=== PATIENT | female | born 1990 | race American Indian/Alaskan Native ===

== ENCOUNTER 2024-12-21 16:42 | Emergency (ER) | payer MEDICAID, SELFPAY ==
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
== END 2024-12-21 17:14 ==
PROVIDERS: Emergency Provider Emergency Medicine
DX: Z02.89 Encounter for other administrative examinations (principal); Z53.29 Procedure and treatment not carried out because of patient's decision for other reasons